=== PATIENT | male | born 1965 | race Caucasian/White ===

== ENCOUNTER 2016-11-16 12:40 | Day surgery (SDC) | payer OTHER ==
[~2016-11-16 12:40] MED LIST: AMB10 PO; CENTRUM PO; CETIRIZINE HCL5 MG PO; FLEX PO; FLEXERIL5 MG PO; KAPIDEX60 MG PO; LIDODERM TOP; NASONEX NAS; NORCO1 TAB PO; PRIN10 PO; PROAIR HFA INH; XANAX1 MG PO; ZANAFLEX2 MG PO
== END 2016-11-16 17:53 | disposition home or self-care (01) ==
LOC: IMGHOLD 12:40 → RADHOLD 12:47 → IMGHOLD 14:42
PROVIDERS: Anesthesiology
PROC: BR39ZZZ Magnetic Resonance Imaging (MRI) of Lumbar Spine (ICD-10-PCS; principal; 2016-11-16)
DX: M54.9 Dorsalgia, unspecified (principal); G89.29 Other chronic pain; M54.5 Low back pain; Z79.899 Other long term (current) drug therapy; Z88.2 Allergy status to sulfonamides; Z88.1 Allergy status to other antibiotic agents; Z91.041 Radiographic dye allergy status; Z79.891 Long term (current) use of opiate analgesic; F43.10 Post-traumatic stress disorder, unspecified; Z98.1 Arthrodesis status
CPT/HCPCS: 72146; 72148; A9270-GY; J2250; J2405; J3010

== ENCOUNTER 2017-02-05 06:23 | Day surgery (SDC) | payer OTHER ==
[~2017-02-05] VITALS: Ht 193 cm; Wt 103.4 kg
== END 2017-02-05 08:33 | disposition home or self-care (01) ==
LOC: SDC 06:23
PROVIDERS: Orthopaedic Surgery
PROC: B01BZZZ Fluoroscopy of Spinal Cord (ICD-10-PCS; 2017-02-05)
PROC: 3E0R33Z Introduction of Anti-inflammatory into Spinal Canal, Percutaneous Approach (ICD-10-PCS; 2017-02-05)
PROC: 3E0R3BZ Introduction of Anesthetic Agent into Spinal Canal, Percutaneous Approach (ICD-10-PCS; principal; 2017-02-05 08:15)
DX: M54.16 Radiculopathy, lumbar region (principal); Z88.2 Allergy status to sulfonamides; Z88.8 Allergy status to other drugs, medicaments and biological substances; Z98.890 Other specified postprocedural states
CPT/HCPCS: J1040; J2250; J3010